=== PATIENT | female | born 1995 | race Caucasian/White ===

== ENCOUNTER → 2018-05-05 | Outpatient (CLI) | payer BC ==
[~2018-05-05] MED LIST: LEVO-3 PO; NORG1TAB74 PO; OXYC-865 PO
== END ==
LOC: LAB 09:27
PROVIDERS: ATTEND Anesthesiology
DX: Z01.812 Encounter for preprocedural laboratory examination (principal); E03.9 Hypothyroidism, unspecified
CPT/HCPCS: 36415; 84443

== ENCOUNTER 2018-12-07 19:30 | Emergency (ER) | payer BC ==
[~2018-12-07 19:30] MED LIST changes: +LOR5/325 PO; +METF-452 PO
--- NOTE | 2018-12-07 19:41 | ER Report ---
History and Physical Time Seen By MD: 19:41 Hx. of Stated Complaint: RT RIB AND UPPER BACK PAIN. WAS HERE AROUND [place] FOR A SIMILAR PAIN, DIAGNOSISED WITH IMFLAMATIONS AROUND THE RIB CAGE. THIS PAIN FEELS THE SAME BUT WORSE HPI/ROS CHIEF COMPLAINT: right rib pain HISTORY OF PRESENT ILLNESS: 23 year old female presents with right rib pain that started at approximately 1745 this evening. Patient reports she was bending down taking a sample of chemicals at the [employer] and felt a sharp stabbing pain. Patient rates the pain a 9 out of 10 and the pain radiates up her back to her shoulders. Patient also reports chest pain to her sternal area, pain is sharp and rates it a 7 out of 10. Reports she has a history of "inflammation on the lining of her lung" that was diagnosed in August. Patient reports pain with taking a deep breath, reports vomiting after the pain started, mild headache, dizziness, denies syncope. REVIEW OF SYSTEMS: Constitutional: Denies fevers. Respiratory: Reports sharp chest pain with deep inspiration and movement. Denies cough. Cardiovascular: Reports chest pain to her sternum. Pain is sharp. No palpitations Gastrointestinal: No abdominal pain. Reports vomiting this evening after the pain started. Denies diarrhea and constipation. Musculoskeletal: Reports right rib pain that radiates up her back to her shoulders. Worse with inspiration and movement. Allergies: Coded Allergies: No Known Drug Allergies (Unverified , 12/07/18) Home Meds Active Scripts Cyclobenzaprine Hcl (CYCLOBENZAPRINE HCL) 10 Mg Tablet, 10 MG PO TID PRN for MUSCLE SPASMS, #15 TAB Prov:BENI GIBSON 12/07/18 Ketorolac Tromethamine (KETOROLAC TROMETHAMINE) 10 Mg Tab, 10 MG PO Q6H, #20 TAB Prov:BENI GIBSON 12/07/18 Norgestimate-Ethinyl Estradiol (SPRINTEC) 1 Each Tablet, 1 EACH PO DAILY, #1 PACK 0 Refills Prov:CAR HOOVER MD 04/24/18 Reported Medications Metformin Hcl (METFORMIN HCL) 1,000 Mg Tablet, 1 TAB PO QDAY, TAB 09/20/18 Levothyroxine Sodium (LEVOTHYROXINE SODIUM) 100 Mcg Tablet, 175 MCG PO QDAY, TAB 11/05/16 Discontinued Scripts Hydrocodone Bit/Acetaminophen (HYDROCODON-ACETAMINOPHEN 5-325) 1 Each Tablet, 1 EACH PO Q4-6H PRN for PAIN, #12 TAKE ONE TABLET BY MOUTH EVERY 4-6 HOURS NEEDED FOR PAIN Prov:DEVORA ZALDIVAR DO 09/20/18 Past Medical/Surgical History Patient with significant past medical history of bronchitis, type 2 diabetes, hypothyroid. Patient with significant surgical history for ACL/MCL and meniscus repair to right knee. Reviewed Nurses Notes: Yes Hx Smoking: No Smoking Status: Never Smoker Exposure to Second Hand Smoke?: No Hx Substance Use Disorder: No Hx Alcohol Use: No Constitutional Vital Sign - Last 24 Hours 12/07/18 12/07/18 12/07/18 12/07/18 19:30 19:33 19:34 19:45 Temp 98.7 Pulse ??? 101 90 Resp 16 B/P (MAP) 149/96 149/96 (113) Pulse Ox 93 95 O2 Delivery Room Air 12/07/18 12/07/18 12/07/18 12/07/18 20:00 20:15 20:30 20:45 Pulse 101 92 94 ??? B/P (MAP) 128/90 (103) 123/78 (93) Pulse Ox 95 96 94 Physical Exam General Appearance: The patient is alert, has no immediate need for airway protection and no current signs of toxicity. Eyes: Pupils equal and round no injection. Respiratory: Chest is tender to palpation at the sternum, lungs are clear to auscultation. Cardiac: regular rate and rhythm Gastrointestinal: Abdomen is soft and non tender, no masses, bowel sounds normal. Musculoskeletal: Patient reports sharp pain to right ribs with palpation. Skin: No rashes or lesions. DIFFERENTIAL DIAGNOSIS: After history and physical exam differential diagnosis was considered for costochondritis, right rib strain, RI, PE, pulmonary infection, Medical Decision Making Data Points Result Diagram: 12/07/18203312/07/182033 Laboratory Hematology Test 12/07/18 20:34 Red Blood Count 5.25 M/uL (4.17-5.56) Mean Corpuscular Volume 81.5 fL (80.0-96.0) Mean Corpuscular Hemoglobin 27.9 pg (26.0-33.0) Mean Corpuscular Hemoglobin Concent 34.3 g/dL (32.0-36.0) Red Cell Distribution Width 14.9 % (11.5-14.5) Mean Platelet Volume 9.1 fL (7.2-11.1) Neutrophils (%) (Auto) 79.3 % (39.4-72.5) Lymphocytes (%) (Auto) 17.0 % (17.6-49.6) Monocytes (%) (Auto) 3.3 % (4.1-12.4) Eosinophils (%) (Auto) 0.2 % (0.4-6.7) Basophils (%) (Auto) 0.2 % (0.3-1.4) Nucleated RBC Relative Count (auto) 0.1 /100WBC Neutrophils # (Auto) 13.5 K/uL (2.0-7.4) Lymphocytes # (Auto) 2.9 K/uL (1.3-3.6) Monocytes # (Auto) 0.6 K/uL (0.3-1.0) Eosinophils # (Auto) 0.0 K/uL (0.0-0.5) Basophils # (Auto) 0.0 K/uL (0.0-0.1) Nucleated RBC Absolute Count (auto) 0.01 K/uL D-Dimer Quantitative (PE/DVT) < 0.27 ug/ml (0-0.50) Sodium Level 139 mmol/L (137-145) Potassium Level 3.8 mmol/L (3.5-5.0) Chloride Level 104 mmol/L (98-107) Carbon Dioxide Level 23 mmol/L (22-31) Blood Urea Nitrogen 13 mg/dl (7-18) Creatinine 0.90 mg/dl (0.52-1.04) Glomerular Filtration Rate Calc > 60.0 Random Glucose 120 mg/dl (75-110) Calcium Level 9.9 mg/dl (8.4-10.2) Total Bilirubin 0.5 mg/dl (0.2-1.3) Aspartate Amino Transf (AST/SGOT) 59 U/L (0-35) Alanine Aminotransferase (ALT/SGPT) 51 U/L (0-56) Alkaline Phosphatase 68 U/L (0-126) Troponin I < 0.012 ng/ml Total Protein 8.1 g/dl (6.3-8.2) Albumin 4.7 g/dl (3.5-5.0) Human Chorionic Gonadotropin, Qual Negative (NEGATIVE) Chemistry Test 12/07/18 20:34 White Blood Count 17.0 k/uL (4.5-11.0) Red Blood Count 5.25 M/uL (4.17-5.56) Hemoglobin 14.7 g/dL (12.0-16.0) Hematocrit 42.8 % (34.0-47.0) Mean Corpuscular Volume 81.5 fL (80.0-96.0) Mean Corpuscular Hemoglobin 27.9 pg (26.0-33.0) Mean Corpuscular Hemoglobin Concent 34.3 g/dL (32.0-36.0) Red Cell Distribution Width 14.9 % (11.5-14.5) Platelet Count 357 K/uL (150-450) Mean Platelet Volume 9.1 fL (7.2-11.1) Neutrophils (%) (Auto) 79.3 % (39.4-72.5) Lymphocytes (%) (Auto) 17.0 % (17.6-49.6) Monocytes (%) (Auto) 3.3 % (4.1-12.4) Eosinophils (%) (Auto) 0.2 % (0.4-6.7) Basophils (%) (Auto) 0.2 % (0.3-1.4) Nucleated RBC Relative Count (auto) 0.1 /100WBC Neutrophils # (Auto) 13.5 K/uL (2.0-7.4) Lymphocytes # (Auto) 2.9 K/uL (1.3-3.6) Monocytes # (Auto) 0.6 K/uL (0.3-1.0) Eosinophils # (Auto) 0.0 K/uL (0.0-0.5) Basophils # (Auto) 0.0 K/uL (0.0-0.1) Nucleated RBC Absolute Count (auto) 0.01 K/uL D-Dimer Quantitative (PE/DVT) < 0.27 ug/ml (0-0.50) Glomerular Filtration Rate Calc > 60.0 Calcium Level 9.9 mg/dl (8.4-10.2) Total Bilirubin 0.5 mg/dl (0.2-1.3) Aspartate Amino Transf (AST/SGOT) 59 U/L (0-35) Alanine Aminotransferase (ALT/SGPT) 51 U/L (0-56) Alkaline Phosphatase 68 U/L (0-126) Troponin I < 0.012 ng/ml Total Protein 8.1 g/dl (6.3-8.2) Albumin 4.7 g/dl (3.5-5.0) Human Chorionic Gonadotropin, Qual Negative (NEGATIVE) Coagulation Test 12/07/18 20:34 D-Dimer Quantitative (PE/DVT) < 0.27 ug/ml EKG/Imaging Imaging Chest x-ray and right rib x-ray: FINDINGS: 2 views of the chest, AP views of the upper and lower right ribs as well as oblique view of the right ribs. Lungs are well-expanded. The lungs are clear. No pneumothorax or pleural effusion. Heart size is normal. Mineralization is normal. No acute abnormality or suspicious lesion of the left ribs. IMPRESSION: 1. No apparent acute cardiopulmonary abnormality. 2. No apparent abnormality of the right ribs. ED Course/Re-evaluation ED Course Patient admitted to an exam room, history and physical obtained, differentials considered. Patient with right rib pain that started at approximately 1745 this evening. 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 Reports she suddenly felt a sharp stabbing pain to her right ribs. The pain radiates to her back up to her shoulders. Patient reports sternum pain that is sharp and stabbing. Reports increased pain with deep inspiration and movement. Reports pain with palpation to sternum and right lower ribs. Reports vomiting, dizziness, mild headache after the pain started. Denies syncope. Lungs clear to auscultation. IV started, NS infused. CBC, CMP, troponin, d-dimer, ESR, HCG, EKG and chest x-ray gathered. WBC elevated, likely due to demargination due to vomiting. Troponin, d-dimer negative. No electrolyte abnormalities. Toradol 15mg IV and norflex 30 mg IV given for pain. Reports pain is slowly decreasing from a 10 to a 7. Chest x-ray and rib x-ray showed no apparent acute cardiopulmonary abnormality, and no apparent abnormality of the right ribs. Plan to discharge patient home to self- care with prescriptions for toradol and flexeril for pain relief. Patient agreeable to plan of care. Decision to Disposition Date: Dec 07, 2018 Decision to Disposition Time: 22:07 Depart Departure Latest Vital Signs Vital Signs Date Time Temp Pulse Resp B/P (MAP) Pulse Ox O2 Delivery O2 Flow Rate FiO2 12/07/18 20:45 ??? 12/07/18 20:30 123/78 (93) 94 12/07/18 19:33 98.7 16 Room Air Impression: Primary Impression: Chest wall muscle strain Condition: Improved Disposition: HOME OR SELF-CARE New Scripts Cyclobenzaprine Hcl (CYCLOBENZAPRINE HCL) 10 Mg Tablet 10 MG PO TID PRN for MUSCLE SPASMS, #15 TAB Prov: BENI GIBSON 12/07/18 Ketorolac Tromethamine (KETOROLAC TROMETHAMINE) 10 Mg Tab 10 MG PO Q6H, #20 TAB Prov: BENI GIBSON 12/07/18 Patient Instructions: Chest Wall Pain (ED) Additional Instructions: Take toradol 10mg every 6 hours as needed for your pain. You may take cyclobenzaprine (muscle relaxer) 10mg, three times a day as needed. Avoid activity that aggravates your pain. Folow-up with your primary care provider on Tuesday or Tuesday on next week. Return to the ER if you experience difficultly breathing, the chest and rib pain worsen, you have increased dizziness, you develop fevers, or you start to vomit. Problem Qualifiers Primary Impression: Chest wall muscle strain Encounter type: initial encounter Qualified Codes: S29.011A - Strain of muscle and tendon of front wall of thorax, initial encounter BENI GIBSON Dec 07, 2018 19:41
[2018-12-07] MEDS ORDERED: NS(*) 0.9% 1000 ML BAG 1,000 ML IV ONE (20:16)
[2018-12-07 20:30] VITALS: BP 123/78
[2018-12-07 20:44] LABS: PLATELET COUNT, AUTOMATED 357 K/uL (150-450)
[2018-12-07] MEDS ORDERED: KETOROLAC 15 MG/ML VIAL IVP ONE (21:35)
[2018-12-07] MEDS ORDERED: ORPHENADRINE 60MG/2ML INJ IVP ONE (21:35)
--- NOTE | 2018-12-07 21:37 | RADIOLOGY IMAGING REPORT ---
FACILITY: [facility] PATIENT NAME: Madeline Willis : 1995 MR: [id number] V: [id number] EXAM DATE: ORDERING PHYSICIAN: BENI GIBSON [place]CHN[place] [facility] [place] Mad[place] : 1995 Visit/Account:[id number] Date of Sevice: 12/07/2018 12/07/2018 8:16 PM. INDICATION: Right rib pain. COMPARISON: Chest radiographs 09/20/2018. FINDINGS: 2 views of the chest, AP views of the upper and lower right ribs as well as oblique view of the righ t ribs. Lungs are well-expanded. The lungs are clear. No pneumothorax or pleural effusion. Heart size is n ormal. Mineralization is normal. No acute abnormality or suspicious lesion of the left ribs. IMPRESSION: 1. No apparent acute cardiopulmonary abnormality. 2. No apparent abnormality of the right ribs. Report Dictated By: Rudy Corral MD at 12/07/2018 9:26 PM Report E-Signed By: Rudy Corral MD at 12/07/2018 9:33 PM WSN:[id number]
--- NOTE | 2018-12-07 21:37 | RADIOLOGY IMAGING REPORT ---
[facility] PATIENT NAME: Madeline Willis : 1995 MR: [id number] V: [id number] EXAM DATE: ORDERING PHYSICIAN: BENI GIBSON TECHNOLOGIST: Location: [facility] Patient: Madeline Willis : 1995 Visit/Account:[id number] Date of Sevice: 12/07/2018 12/07/2018 8:16 PM. INDICATION: Right rib pain. COMPARISON: Chest radiographs 09/20/2018. FINDINGS: 2 views of the chest, AP views of the upper and lower right ribs as well as oblique view of the righ t ribs. Lungs are well-expanded. The lungs are clear. No pneumothorax or pleural effusion. Heart size is n ormal. Mineralization is normal. No acute abnormality or suspicious lesion of the left ribs. IMPRESSION: 1. No apparent acute cardiopulmonary abnormality. 2. No apparent abnormality of the right ribs. Report Dictated By: Rudy Corral MD at 12/07/2018 9:26 PM Report E-Signed By: Rudy Corral MD at 12/07/2018 9:33 PM WSN:[id number]
--- NOTE | 2018-12-07 21:55 | EKG ---
FACILITY: [facility] [place] PATIENT NAME: MERI CARLIN : [id number] MR: [id number]: [id number] EXAM DATE: ORDERING PHYSICIAN: BENI GIBSON TECHNOLOGIST: LUTHER Calderon Reason : CP Blood Pressure : / mmHG Vent. Rate : 081 BPM Atrial Rate : 081 BPM P-R Int : 138 ms QRS Dur : 102 ms QT Int : 392 ms P-R-T Axes : 052 090 016 degrees QTc Int : 455 ms Sinus rhythm Nonspecific interventricular conduction delay When compared with ECG of 20-SEP-2018 01:56, No significant change was found Confirmed by ANCA SCHMITT ([id number] on 12/07/2018 10:29:28 PM Referred By: Confirmed By:ANCA SCHMITT
[2018-12-07] MEDS ORDERED: KET10 PO (22:01)
[2018-12-07] MEDS ORDERED: CYCL10TA29 PO (22:01)
[2018-12-07] MEDS ORDERED: KETOROLAC TROM 10 MG TAB TH PO ONE (22:10)
[2018-12-07] MEDS ORDERED: CYCLOBENZAPRINE HCL 10 MG TH PO ONE (22:10)
== END 2018-12-07 22:15 | disposition home or self-care (01) ==
LOC: ER 19:46
DX: S29.011A Strain of muscle and tendon of front wall of thorax, initial encounter (principal)
CPT/HCPCS: 84484; 84703; 85025; 85379; 93005; 96361; 96374; 96375; 99284; J1885; J2360; J7030; 71046; 71100; 82040; 82247; 82310; 82374; 82435; 82565; 82947; 84075; 84132; 84155; 84295; 84450; 84460; 84520